=== PATIENT | female | born 1980 | race Two or more races ===

== ENCOUNTER 2024-03-14 08:22 | Inpatient (IN) | payer OTHER, MEDICAID, SELFPAY ==
--- NOTE | 2024-03-14 | XR_ITS ---
Examination: MRI pelvis , with intravenous contrast. Exam date and time: March 14, 2024 1834 hrs. Indications: Pelvic pain more than one year, pelvic sonogram January 25, 2024 vascular mass replacing the uterus 13.5 x 10.4 x 10.8 cm Technique: Multiple axial, sagittal and coronal images of the pelvis have been obtained with the Siemens high-resolution 1.5 Trice MRI scanner. Images obtained included T2 weighted fat suppressed sagittal sections, TR 3500, TE 46, T2 weighted coronal fat suppressed images, TR 3050, TE 84, T2-weighted transverse fat suppressed images, TR 30-60, TE 63, proton density transverse images, TR 4720, TE 46, and T1 weighted coronal images, TR 560, TE 13. Axial, sagittal and coronal images are obtained post intravenous injection 13 cc gadolinium. Findings: Anteverted uterus 17 x 12 x 13 cm The fundus is replaced by an enhancing tumor mass 12 x 9.6 x 12.3 cm Right ovary 2.9 x 2.2 cm with small follicular cysts Left ovary 2.8 x 2.2 cm with small follicular cyst No common iliac and external iliac or common femoral lymphadenopathy No presacral mass Moderate degenerative disc disease L5-S1 Impression: Enhancing mass replacing the fundus of uterus, 12 x 9.6 x 12.3 cm, differential would include uterine fibroid degeneration, malignant mass of the endometrium
[2024-03-14 08:34] VITALS: BP 137/86; PULSE 88; RESP 16; TEMP 36.6; O2SAT 99; BMI 30.2
--- NOTE | 2024-03-14 08:36 | PD.EDADULT ---
ED General RME/HPI General Chief complaint: General Adult/Misc Complain Stated complaint: FIBROID PAIN, SENT BY ANAYA Time Seen by Provider: 03/14/24 08:24 Arrival date/time: 03/14/24 08:22 43-year-old female presents the emergency department complaints of pelvic pain ongoing for more than a year worsening for the last couple of weeks patient reports he spoke with Dr. Macdonald who referred her to ER for surgical intervention Limitations: no limitations Related Data Allergies Allergy/AdvReac Type Severity Reaction Status Date / Time No Known Allergies Allergy Verified 04/27/21 12:02 Review of Systems Review of Systems Systems Reviewed: All systems reviewed, normal except as documented Constitutional Constitutional: Reports system reviewed and no additional complaints, except as documented, Denies fever(s) and Denies headache(s) Eyes Eyes: Reports system reviewed and no additional complaints, except as documented and Denies blurry vision ENT Ears, Nose, Mouth, and Throat: Reports system reviewed and no additional complaints, except as documented, Denies headache(s), Denies nasal congestion and Denies nasal discharge Cardiovascular Cardiovascular: Reports system reviewed and no additional complaints, except as documented, Denies chest pain and Denies dyspnea Respiratory Respiratory: Reports system reviewed and no additional complaints, except as documented, Denies chest congestion, Denies cough and Denies dyspnea Gastrointestinal Gastrointestinal: Reports system reviewed and no additional complaints, except as documented and Denies abdominal pain Genitourinary Genitourinary: Reports system reviewed and no additional complaints, except as documented, Denies abnormal vaginal bleeding and Reports pelvic pain Integumentary/Breasts Skin/Breast: Reports system reviewed and no additional complaints, except as documented and Denies rash Neurologic Neurologic: Reports system reviewed and no additional complaints, except as documented, Reports as per HPI and Denies headache(s) Past Medical History Social History SMOKING STATUS: Never smoker ED Exam General Limitations: Present no limitations General appearance: Present alert and in no apparent distress Head Head exam: Present atraumatic, normocephalic and normal inspection Eye Eye exam: Present normal appearance, PERRL and EOMI; Absent conjunctival injection ENT ENT exam: Present normal exam, normal oropharynx and mucous membranes moist Neck Neck exam: Present normal inspection, full ROM and trachea midline Chest Chest inspection: Present normal inspection and symmetric chest wall rise Respiratory Respiratory exam: Present normal lung sounds bilaterally; Absent respiratory distress Cardiovascular Cardiovascular exam: Present regular rate, normal rhythm and normal heart sounds Abdominal Exam Abdominal exam: Present soft and normal bowel sounds; Absent distention, tenderness, guarding, rebound or rigidity Extremities Exam Extremities exam: Present normal inspection and full ROM Back Exam Back exam: Present normal inspection and full ROM Neurological Exam Neurological exam: Present alert, oriented X3 and CN II-XII intact Psychiatric Psychiatric exam: Present normal affect and normal mood Skin Skin exam: Present warm, dry, intact and normal color Course Quality Measures none Orders Category Date Time Status Admit to Inpatient Status Routine Admission 03/14/24 09:04 Active Patient Condition Routine Admission 03/14/24 09:04 Ordered Activity as Tolerated Routine Care 03/14/24 09:05 Ordered COVID-19 Screening Questionnaire NOW Care 03/14/24 08:51 Active Decision to Admit X1 Care 03/14/24 08:31 Active Intake and Output QSHIFT Care 03/14/24 09:15 Ordered MRI Screening NOW Care 03/14/24 09:09 Active Notify provider NEEDED Care 03/14/24 09:04 Active Diet Regular Diet 03/14/24 Lunch Active MR pelvis w con Stat Exams 03/14/24 Ordered CBC Stat Lab 03/14/24 08:31 Ordered Comprehensive Metabolic Panel Stat Lab 03/14/24 08:31 Ordered Magnesium Routine Lab 03/15/24 09:04 Ordered Partial Thromboplastin Time Stat Lab 03/14/24 08:31 Ordered Phosphorous Routine Lab 03/15/24 09:04 Ordered Prothrombin Time with INR Stat Lab 03/14/24 08:31 Ordered Type and Screen Stat Lab 03/14/24 09:08 Ordered Acetaminophen Tab [Tylenol Tab] Med 03/14/24 09:04 Active 650 mg PO Q6H PRN Dextrose 5%-0.45% Ns [D5-1/2Ns] 1,000 ml Med 03/14/24 09:15 Active IV 75 mls/hr Ondansetron Inj [Zofran Inj] Med 03/14/24 09:04 Active 4 mg IV Q6H PRN bisacodyL [Dulcolax Supp] Med 03/14/24 09:04 Active 10 mg AL QDAY PRN bisacodyL [Dulcolax] Med 03/14/24 09:04 Active 10 mg PO QDAY PRN Code Status Routine Oth 03/14/24 09:04 Ordered Vital Signs Vital signs: Vital Signs Temperature 97.9 F 03/14/24 08:34 Pulse Rate 88 03/14/24 08:34 Respiratory Rate 16 03/14/24 08:34 Blood Pressure 137/86 H 03/14/24 08:34 Pulse Oximetry (%) 99 03/14/24 08:34 Oxygen Delivery Method Room Air 03/14/24 08:34 O2 saturation 99% room air within normal limits [facility] Patient data External records reviewed:: [facility] previous records Clinical information provided by:: patient Social determinants that could affect healthcare access:: none Patient has the following chronic illnesses:: See history How is presenting disease/condition affected by chronic disease/condition?: caused by Evaluation data The following diagnostics were reviewed and interpreted by me:: lab results Lab and/or radiology exams considered but not ordered:: Labs obtained Interpretation Summary: Reviewed by me Medications Medications considered but not ordered:: No meds Medication administrations:: Medication Administration History Acetaminophen (Acetaminophen 325 Mg Tablet) 650 mg PO Q6H PRN PRN Reason: Fever >101.5 Stop: 04/13/24 09:03 Bisacodyl (Bisacodyl 5 Mg Tabec) 10 mg PO QDAY PRN PRN Reason: CONSTIPATION Stop: 04/13/24 09:03 Bisacodyl (Bisacodyl 10 Mg Supp) 10 mg AL QDAY PRN PRN Reason: CONSTIPATION Stop: 04/13/24 09:03 Dextrose/Sodium Chloride (D5-1/2ns) 1,000 mls @ 75 mls/hr IV .[id number] PAT Stop: 04/13/24 09:14 Ondansetron HCl (Ondansetron Inj 2 Mg/Ml Inj 2 Ml) 4 mg IV Q6H PRN PRN Reason: NAUSEA OR VOMITING Stop: 04/13/24 09:03 No meds Consultations Consultation(s) initiated? (list below): Yes Consultation #1 (Physician, Specialty, Details): Dr. Macdonald Diagnosis Differential Diagnosis ED Complaint MDM: Missed , threatened , uterine tumor, ovarian cyst Most likely diagnosis given after review of the tests above:: Uterine tumor Admission Indicated Admission indicated?: indicated Explain why admission is indicated or not indicated:: Patient requires surgical intervention Admission Request Was there a request for admission?: Yes Admission Attestation Admission request attestation: Discussed case with [] from Hospitalist service regarding admission. Discussed patients ED course, exam findings, labs, and radiology results. The Hospitalist [agrees,declines] to accept the patient for admission. Disposition Plan Disposition Plan: Admit Medical Decision Making MDM Narrative MDM Narrative: 43-year-old female presents the emergency department complaints of pelvic pain ongoing for more than a year worsening for the last couple of weeks patient reports he spoke with Dr. Macdonald who referred her to ER for surgical intervention On exam patient does not appear ill or toxic in no acute distress Patient hemodynamically stable Consultation: I spoke with Dr. Macdonald he requested that I put basic labs and he will admit the patient for surgical intervention Differential Diagnosis Differential Diagnosis: Missed , threatened , uterine tumor, ovarian cyst Medical Records Medical records reviewed: Yes I reviewed the patient's medical records. Lab Data Lab results reviewed: Yes I reviewed the patient's lab results. Discharge Plan Plan Patient Disposition: Admit Acute Care w/in Hospital Disposition Comment: Stable Problem List Clinical Impression: Uterine neoplasm Patient/Caregiver Discharge Instructions Print Language: Zambian Stand Alone Forms: Breonna Award Info., Patient Portal Info Letter PA/MACHINE FEED OPERATOR Supervising Physician PA/MACHINE FEED OPERATOR Supervising Physician: Dr. Castillo
[2024-03-14 09:25] LABS: Basophils # (Auto) 0.1 Thou/mm3 (0.0-0.2); Basophils % (Auto) 1 % (0-2.5); Eosinophils # (Auto) 0.4 Thou/mm3 (0.0-0.5); Eosinophils % (Auto) 7 % (0-10); Hematocrit 39.5 % (36.0-46.0); Hemoglobin 13.6 g/dL (12.0-16.0); Immature Granulocytes % (Auto) 0 % (0-0); Immature Granulocytes Auto 0.01 Thou/mm3 (0.00-0.00); Lymphocytes # (Auto) 1.6 Thou/mm3 (1.0-4.8); Lymphocytes % (Auto) 28 % (10-50); Mean Corpuscular HGB Conc 34.4 g/dl (31.0-37.0); Mean Corpuscular Volume 81 fL (80-100); Monocytes # (Auto) 0.5 Thou/mm3 (0.0-0.8); Monocytes % (Auto) 8 % (0-12); Neutrophils # (Auto) 3.4 Thou/mm3 (1.8-7.7); Neutrophils % (Auto) 57 % (37-80); Nucleated Red Blood Cell % 0 /100 WBC (0); Platelet Count 286 Thou/mm3 (140-440); Red Blood Count 4.85 Miln/mm3 (4.00-5.20); White Blood Count 5.9 Thou/mm3 (3.6-11.0)
[2024-03-14 09:43] LABS: Partial Thromboplastin Time 23.1 Seconds (22.0-36.0); Prothrombin Time 11.3 Seconds (9.0-12.2)
--- NOTE | 2024-03-14 09:50 | PC.NURSE ---
PATIENT C/O LOWER ABD PAIN,CRAMPS AND INTERMITTENT BLEEDING. PAIN LEVEL IS 6/10. IS SEE[address] DR JULIEN AND HAS UTERINE FIBROIDS. PLAM IS TO HAVE A HYSTERECTOMY. INFORMED BY DR JULIEN TO GO TO THE ER IF INCREASED PAIN OR SYMPTOMS.
[2024-03-14 09:54] LABS: Alanine Aminotransferase 27 U/L (10-49); Albumin, Serum 4.6 gm/dL (3.5-5.0); Albumin/Globulin Ratio 1.6 (1.2-2.2); Alkaline Phosphatase 94 U/L (46-116); Anion Gap 7 (7-16); Aspartate Amino Transferase 27 U/L (0-34); BUN/Creatinine Ratio 14 Ratio (12-20); Bilirubin,Total 0.5 mg/dL (0.3-1.2); Blood Urea Nitrogen 11 mg/dL (9-23); Calcium 8.8 mg/dL (8.3-10.6); Calcium (Corrected) 8.8 mg/dL (8.5-10.1); Chloride 107 mMol/L (98-107); Creatinine (Component) 0.8 mg/dL (0.6-1.3); Estimated Creatinine Clearance 74.5 mL/min (>60); Globulin 2.9 gm/dL (2.3-3.5); Glucose 110 mg/dL (74-106); Osmolality,Calculated 274 (275-295); Sodium 137 mMol/L (136-145); Total Protein 7.5 gm/dL (5.7-8.2); eGFR > 60 See Note
[2024-03-14 10:08] LABS: Potassium 4.1 mMol/L (3.4-5.1)
[2024-03-14] MEDS: DEXTROSE 5%-0.45% NS 1,000 ML 75 ML IV ×2 (10:30→23:15)
[2024-03-14 11:52] VITALS: BP 121/67; PULSE 81; RESP 18; TEMP 36.6; O2SAT 98
[2024-03-14 13:30] VITALS: BMI 30.2
[2024-03-14 14:11] LABS: HCG,Qualitative Serum Negative
--- NOTE | 2024-03-14 19:20 | PC.NURSE ---
Dr. Macdonald made aware that patient's MRI of the pelvis without contrast showed an enhancing mass replacing the fundus of uterus, 12 x 9.6 x 12.3 cm, differential would include uterine fibroid degeneration, malignant mass of the endometrium. Dr. Macdonald said that he plans to do surgery tomorrow and that she should be NPO at midnight.
[2024-03-14 20:00] VITALS: BP 120/74; PULSE 73; RESP 18; TEMP 36.6; O2SAT 98
[2024-03-15] VITALS: BP 105/63; PULSE 66; RESP 18; TEMP 36.6; O2SAT 97
[2024-03-15 04:00] VITALS: BP 122/82; PULSE 87; RESP 18; TEMP 36.6; O2SAT 99
--- NOTE | 2024-03-15 07:07 | PD.GYNHP ---
Documentation for date of: 03/15/24 LABORATORY SAMPLE CARRIER - HPI History of Present Illness History of present illness: Ms. ORELLANA is a 43 year old female who presents to the emergency room for intractable uterine bleeding that has been going on for the past few months. Patient has been under my evaluation at the office with details as below. HPI: The patient presents for a follow-up regarding her recent ultrasound performed on January 25, 2024, at [place]. The ultrasound findings indicate a significant increase in uterine size, now measuring approximately 17 cm, compared to her last ultrasound in May. A vascular mass measuring 13 cm by 12 cm is observed, covering the entire uterus and raising concerns for uterine cancer. The patient has been informed about the need for expedited surgical intervention to confirm the diagnosis and manage the condition. She demonstrates understanding of the urgency and remains cooperative with the plan. She also recently changed her primary care provider, with the new provider taking effect on February 02. The patient acknowledges the importance of coordinating insurance approval and scheduling for the surgery, which is tentatively planned for the following week. Ultrasound Findings (January 25, 2024): ? Uterus size increased to 17 cm since May. ? Presence of a vascular mass covering the entire uterus, measuring 13 cm by 12 cm. ? High concern for uterine cancer noted. Meds Home Medications and Allergies Home Medications ?Medication ?Instructions ?Recorded ?Confirmed ?Type No Known Home Medications 03/14/24 03/14/24 History Allergies Allergy/AdvReac Type Severity Reaction Status Date / Time No Known Allergies Allergy Verified 04/27/21 12:02 Exam - LABORATORY SAMPLE CARRIER Vital Signs Temp Pulse Resp BP Pulse Ox O2 Del Method 97.8 F 87 18 122/82 99 Room Air 03/15/24 04:00 03/15/24 04:00 03/15/24 04:00 03/15/24 04:00 03/15/24 04:00 03/15/24 04:00 Constitutional Constitutional: no acute distress Routine HEENT Exam Head: Present normocephalic and atraumatic Eye: Present EOMI and PERRL ENT: Present mucous membranes moist Routine Neck Exam Neck: Present supple and trachea midline Routine Respiratory Exam Respiratory: Present chest non-tender, lungs clear, normal breath sounds and no resp distress Routine Cardiovascular Exam Cardiovascular: Present RRR Routine Abdominal Exam Abdominal: Present soft and normoactive bowel sounds Routine Extremities Exam Extremities: Present full ROM Routine Skin Exam Skin: Present intact and dry Routine Neurological Exam Neurological: Present alert, oriented X3 and CN II-XII intact Routine Psychiatric Exam Psychiatric: Present normal affect and normal thought process LABORATORY SAMPLE CARRIER - Results Labs 03/14/24 09:15 03/14/24 09:15 Labs: Short CBC 03/14/24 Range/Units 09:15 WBC 5.9 (3.6-11.0) Thou/mm3 Hgb 13.6 (12.0-16.0) g/dL Hct 39.5 (36.0-46.0) % Plt Count 286 (140-440) Thou/mm3 BMP 03/14/24 09:15 Sodium 137 Potassium 4.1 Chloride 107 Carbon Dioxide 23.0 BUN 11 Creatinine 0.8 Glucose 110 H Calcium 8.8 Liver Function 03/14/24 Range/Units 09:15 Total Bilirubin 0.5 (0.3-1.2) mg/dL AST 27 (0-34) U/L ALT 27 (10-49) U/L Alkaline Phosphatase 94 (46-116) U/L Albumin 4.6 (3.5-5.0) gm/dL Assessment and Plan Assessment and plan (1) Uterine neoplasm: Status: Acute Assessment and plan: Admit to inpatient status for further evaluation and possible surgical exploration as needed MRI ordered Will review MRI and then decide further course of treatment Quality Measures Quality Measures none
[2024-03-15 09:41] LABS: Magnesium 1.8 mg/dL (1.6-2.6); Phosphorous 2.4 mg/dL (2.4-5.1)
--- NOTE | 2024-03-15 11:23 | PC.SS ---
Patient is alert/oriented. She resides home with family. Patient is independent with ADL's. Admitted for uterine tumor. Patient being follows by Dr. Macdonald. Patient is employed. Normally healthy. Last p.c.p. was at [facility]. Last seen a year ago. No major health problems. Patient pharmacy: [facility]. Patient alt medical decision maker: . D/c plan: home transportation: family D/c needs: none
[2024-03-15] MEDS: DEXTROSE 5%-0.45% NS 1,000 ML 75 ML IV (11:28)
[2024-03-15] MEDS: FAMOTIDINE INJ 10 MG/ML VIAL 2 ML 20 MG IVP (11:29)
[2024-03-15 12:00] VITALS: BP 119/72; PULSE 78; RESP 17; TEMP 36.3; O2SAT 99
[2024-03-15] MEDS: DEXTROSE 50%-WATER INJ 50 ML SYRINGE IV (12:51)
--- NOTE | 2024-03-15 13:08 | PC.NURSE ---
1100 PATIENT CALLED IV SITE SWOLLEN. WHEN TO CHECK PATIENT LEFT IV SITE SWOLLEN. INFORMED PATIENT NOT TO WORRY THAT HAPPENS AT TIMES. ENCOURAGE TO ELEVATE AND WARM BLANKET APPLIED
--- NOTE | 2024-03-15 19:01 | ESPR_ITS ---
Documentation for date of: 03/15/24 MODERN LANGUAGES PROFESSOR Subjective Subjective Interval history: Patient has been n.p.o. all day for procedure. OR is still running and she is getting anxious. Will feed her now, patient will be shifted to Tuesday for the add-on surgery scheduled Exam Vital Signs Temp Pulse Resp BP Pulse Ox O2 Del Method 97.3 F 78 17 119/72 99 Room Air 03/15/24 12:00 03/15/24 12:00 03/15/24 12:00 03/15/24 12:00 03/15/24 12:00 03/15/24 12:00 Urinary Catheter Management Cath placed during this visit: no MODERN LANGUAGES PROFESSOR - PN: Obj Data Labs 03/14/24 09:15 03/14/24 09:15 Labs: Laboratory Results - last 24 hr 03/14/24 03/15/24 13:26 08:25 Phosphorus 2.4 Magnesium 1.8 Blood Type A Positive Antibody Screen NEGATIVE Crossmatch See Detail Blood Bank Wristband ID Yes MODERN LANGUAGES PROFESSOR - A/P Assessment and plan (1) Uterine neoplasm: Status: Acute Postoperative Procedures: Procedures Operation Date: 03/15/24 17:30 <No data on this case meets the specified criteria> Time Spent With Patient Time: Total time spent is greater than 50% in coordination of care (as documented) at patient's floor/unit and/or counseling patient: Time with patient: less than 15 minutes
--- NOTE | 2024-03-15 19:02 | PC.NURSE ---
Dr. Macdonald arrived on unit and followed up with patient with the plan of care. Per Dr. Macdonald, patient is to resume regular diet until 4am and is to resume NPO @0400 due to procedure tomorrow.
[2024-03-15 20:00] VITALS: BP 121/78; PULSE 80; RESP 18; TEMP 36.6; O2SAT 99
[2024-03-16] VITALS (16 sets, daily range): BP systolic 104–155; BP diastolic 61–94; PULSE 66–99; RESP 12–20; TEMP 36.1–36.7; O2SAT 95–100; BMI 30.2
[2024-03-16] MEDS: DEXTROSE 5%-0.45% NS 1,000 ML 75 ML IV (04:13)
--- NOTE | 2024-03-16 15:18 | PD.GYNPROC ---
Operative Note - INTERNATIONAL RECRUITER Procedure Date of procedure: 03/16/24 Procedure Performed: Exploratory laparotomy, supracervical hysterectomy and bilateral salpingectomy Indication: Pelvic mass of possible uterine origin Anesthesia type: General Procedure description: Informed consent was obtained, and the patient was taken to the operating room. Identity was confirmed using double identifiers, and she was placed on the operating table. General anesthesia was administered, and the patient was secured and positioned in the supine position. The abdomen and perineum were prepped and draped in the usual sterile fashion. A Lawson catheter was placed for continuous drainage. A time-out procedure was completed. A vertical midline skin incision was made with a scalpel and carried down through the subcutaneous tissue to the rectus fascia. The rectus fascia was incised and the fascial incision was extended superiorly and inferiorly using Palencia scissors. The fascia was grasped with Prudencio clamps and dissected off the anterior rectus muscles. The rectus muscles were in the midline, and the peritoneum was identified and entered bluntly. The peritoneal incision was extended to provide adequate access to the pelvic cavity. An Guy O-ring retractor was placed, and the bowel was packed out of the operative field. The uterus was grasped using a double-tooth tenaculum. The uterus was noted to be 24 weeks in size. The uterus was placed under traction, and dissection was started on the right side. The utero-ovarian ligament was divided using the Enseal Large Jaw. The fallopian tube was separately dissected and divided. The round ligament was then divided, and the anterior and posterior leaves of the broad ligament were . The anterior leaf was dissected to the bladder reflection to create the bladder flap, and the posterior leaf was taken down to the uterosacral ligament. Sequential bites were taken along the uterine sidewall to skeletonize and divide the uterine artery. This dissection was carried down to the level of the cervix. The same procedure was repeated on the contralateral side. At the level of the cervix, Tita clamps were placed, and the cervix was amputated. The uterus was removed and sent for pathological examination. The vaginal angles were tagged with 0 Vicryl sutures. The vaginal cuff was closed in a running fashion with 0 Vicryl, and the uterosacral ligaments were reinforced by tying the angles together. The cuff was copiously irrigated, and adequate hemostasis was confirmed. A layer of Surgicel was applied for additional hemostasis. All instruments were withdrawn, and the bowel packing and Guy retractor were removed. The peritoneum, rectus muscle as well as fascia was closed using 1 PDS in a single layer fashion. the subcutaneous layer was irrigated, and the skin was closed with ganga. The incision was thoroughly cleaned, and a sterile pressure dressing was applied. The patient was undraped, anesthesia was reversed, and she was transferred to the recovery room in stable and awake condition. 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 The patient tolerated the procedure well. No acute complications occurred. All instrument, sponge, and lap counts were correct ?2. Estimated blood loss (ml): 200 Complications: none Surgical staff Operation Date: 03/16/24 14:15 <No data on this case meets the specified criteria> Diagnosis Discharge Diagnosis (1) Uterine neoplasm: Status: Acute Problem List Completed Was Problem List Reviewed/Reconciled?: Yes
--- NOTE | 2024-03-16 15:23 | SUR.PHASEI ---
1523: Pt. arrived with oral airway in place, vitals stable, breathing unlabored, no signs of distress, dressing to ABD CDI, no active bleed noted, report received from Tristan WRIGHT And Damian REA.
[2024-03-16] MEDS: MORPHINE SULF 1 MG/ML PCA SYRINGE 30 ML 30 MG IV (15:37)
[2024-03-16] MEDS: ONDANSETRON INJ 2 MG/ML INJ 2 ML 4 MG IV (15:56)
[2024-03-16] MEDS: SODIUM CHLORIDE 0.9% 1000 ML 1,000 ML 200 ML IV ×2 (16:00→20:45)
[2024-03-16] MEDS: METOCLOPRAMIDE INJ 5 MG/ML VIAL 2 ML 10 MG IVP (16:17)
--- NOTE | 2024-03-16 16:23 | SUR.PHASEI ---
1623: Pt. AAOx4, vitals stable, breathing unlabored, complaint of slight pain, pt. connected to MARKETING PROGRAM MANAGER machine, slight nausea present, medications given, dressing to ABD CDI, no active bleed noted, maldonado catheter in place, report given to Bernie RN prior to transfer to room 365A. Family aware of transfer to room.
[2024-03-16] MEDS: ACETAMINOPHEN IVPB 1,000 MG/100 ML VIAL 250 MG IV (20:38)
[2024-03-17] VITALS (8 sets, daily range): BP systolic 102–140; BP diastolic 63–88; PULSE 72–89; RESP 16–97; TEMP 36.4–36.9; O2SAT 97–99
[2024-03-17] MEDS: SODIUM CHLORIDE 0.9% 1000 ML 1,000 ML 200 ML IV ×2 (02:20→07:27)
[2024-03-17] MEDS: ACETAMINOPHEN IVPB 1,000 MG/100 ML VIAL 250 MG IV ×3 (05:08→17:06)
[2024-03-17] MEDS: guaiFENesin/DM 10 ML UDC PO (05:08)
[2024-03-17 06:18] LABS: Basophils % (Auto) 0 % (0-2.5); Eosinophils % (Auto) 0 % (0-10); Hematocrit 33.5 % (36.0-46.0); Hemoglobin 11.4 g/dL (12.0-16.0); Immature Granulocytes % (Auto) 0 % (0-0); Immature Granulocytes Auto 0.04 Thou/mm3 (0.00-0.00); Lymphocytes # (Auto) 0.8 Thou/mm3 (1.0-4.8); Lymphocytes % (Auto) 8 % (10-50); Mean Corpuscular Volume 82 fL (80-100); Monocytes # (Auto) 0.4 Thou/mm3 (0.0-0.8); Monocytes % (Auto) 4 % (0-12); Neutrophils % (Auto) 88 % (37-80); Nucleated Red Blood Cell % 0 /100 WBC (0); Platelet Count 203 Thou/mm3 (140-440); RDW Standard Deviation 39.3 fL (36.4-46.3); Red Blood Count 4.07 Miln/mm3 (4.00-5.20); White Blood Count 10.2 Thou/mm3 (3.6-11.0)
[2024-03-17 06:44] LABS: Anion Gap 7 (7-16); BUN/Creatinine Ratio 10 Ratio (12-20); Blood Urea Nitrogen 6 mg/dL (9-23); Calcium 7.7 mg/dL (8.3-10.6); Carbon Dioxide 19.9 mMol/L (20.0-31.0); Chloride 108 mMol/L (98-107); Creatinine (Component) 0.6 mg/dL (0.6-1.3); Estimated Creatinine Clearance 99.3 mL/min (>60); Glucose 179 mg/dL (74-106); Osmolality,Calculated 271 (275-295); Potassium 3.7 mMol/L (3.4-5.1); Sodium 135 mMol/L (136-145); eGFR > 60 See Note
[2024-03-17] MEDS: DOCUSATE SOD 100 MG CAPSULE PO (07:29)
[2024-03-17] MEDS: LACTULOSE SYRUP 20 GM/30 ML UDC 10 GM PO ×2 (13:16→21:24)
[2024-03-17] MEDS: KETOROLAC INJ 30 MG/ML VIAL IVP ×2 (17:06→23:51)
[2024-03-17] MEDS: MELATONIN 3 MG TABLET PO (21:50)
[2024-03-18] VITALS (7 sets, daily range): BP systolic 121–137; BP diastolic 63–89; PULSE 81–90; RESP 16–99; TEMP 36.2–36.3; O2SAT 92–98
[2024-03-18] MEDS: KETOROLAC INJ 30 MG/ML VIAL IVP ×2 (05:32→11:26)
[2024-03-18] MEDS: LACTULOSE SYRUP 20 GM/30 ML UDC 10 GM PO (05:32)
--- NOTE | 2024-03-18 08:40 | PD.GYNPROG ---
Documentation for date of: 03/18/24 DIRECTOR NURSING SERVICE Subjective Subjective Interval history: Patient doing well this morning. Pain is adequately controlled on the current regimen. No incisional complaints, no chest pain, shortness of breath, breathing difficulties. Ambulating, tolerating p.o., passing flatus and voiding without difficulty. Exam Vital Signs Temp Pulse Resp BP Pulse Ox O2 Del Method O2 Flow Rate 97.2 F 90 18 123/63 96 Room Air 1.5 03/18/24 08:00 03/18/24 08:05 03/18/24 08:05 03/18/24 08:00 03/18/24 08:00 03/18/24 08:00 03/17/24 12:00 Constitutional Constitutional: no acute distress Routine HEENT Exam Head: Present normocephalic and atraumatic Eye: Present EOMI and PERRL ENT: Present mucous membranes moist Routine Neck Exam Neck: Present supple and trachea midline Routine Respiratory Exam Respiratory: Present chest non-tender, lungs clear, normal breath sounds and no resp distress Routine Cardiovascular Exam Cardiovascular: Present RRR Routine Abdominal Exam Abdominal: Present soft and normoactive bowel sounds Routine Extremities Exam Extremities: Present full ROM Routine Skin Exam Skin: Present intact and dry Routine Neurological Exam Neurological: Present alert, oriented X3 and CN II-XII intact Routine Psychiatric Exam Psychiatric: Present normal affect and normal thought process Urinary Catheter Management Cath placed during this visit: no DIRECTOR NURSING SERVICE - PN: Obj Data Labs 03/17/24 05:21 03/17/24 05:21 Labs: Laboratory Results - last 24 hr 03/14/24 13:26 Crossmatch See Detail DIRECTOR NURSING SERVICE - A/P Assessment and plan (1) Uterine neoplasm: Status: Acute Assessment and plan: POD#2 1. Continue routine post operative care 2. Transition to PO meds. 3. Encourage to ambulate 4. Anticipate discharge home today. 5. Home care instructions reviewed Postoperative Procedures: Procedures Operation Date: 03/16/24 14:15 Actual Procedure Side Surgeon p Exploratory laparotomy, supracervical hysterectomy and bilateral salpingectomy Chase Macdonald MD Time Spent With Patient Time: Total time spent is greater than 50% in coordination of care (as documented) at patient's floor/unit and/or counseling patient: Time with patient: less than 15 minutes
--- NOTE | 2024-03-18 08:47 | PD.GYNPROG ---
Documentation for date of: 03/18/24 [employer] Subjective Subjective Interval history: Patient doing well this morning. Pain is adequately controlled on the current regimen. No incisional complaints, no chest pain, shortness of breath, breathing difficulties. Ambulating, tolerating p.o., Adequate UOP Exam Vital Signs Temp Pulse Resp BP Pulse Ox O2 Del Method O2 Flow Rate 97.2 F 90 18 123/63 96 Room Air 1.5 03/18/24 08:00 03/18/24 08:05 03/18/24 08:05 03/18/24 08:00 03/18/24 08:00 03/18/24 08:00 03/17/24 12:00 Constitutional Constitutional: no acute distress Routine HEENT Exam Head: Present normocephalic and atraumatic Eye: Present EOMI and PERRL ENT: Present mucous membranes moist Routine Neck Exam Neck: Present supple and trachea midline Routine Respiratory Exam Respiratory: Present chest non-tender, lungs clear, normal breath sounds and no resp distress Routine Cardiovascular Exam Cardiovascular: Present RRR Routine Abdominal Exam Abdominal: Present soft and normoactive bowel sounds Routine Extremities Exam Extremities: Present full ROM Routine Skin Exam Skin: Present intact and dry Routine Neurological Exam Neurological: Present alert, oriented X3 and CN II-XII intact Routine Psychiatric Exam Psychiatric: Present normal affect and normal thought process Urinary Catheter Management Cath placed during this visit: no [employer] - PN: Obj Data Labs 03/17/24 05:21 03/17/24 05:21 Labs: Laboratory Results - last 24 hr 03/14/24 13:26 Crossmatch See Detail [employer] - A/P Assessment and plan (1) Uterine neoplasm: Status: Acute Assessment and plan: POD#1 1. Continue routine post operative care 2. Transition to PO meds. 3. Encourage to ambulate 4. Anticipate discharge home tomorrow 5. Home care instructions reviewed Postoperative Procedures: Procedures Operation Date: 03/16/24 14:15 Actual Procedure Side Surgeon p Exploratory laparotomy, supracervical hysterectomy and bilateral salpingectomy Chase Macdonald MD Time Spent With Patient Time: Total time spent is greater than 50% in coordination of care (as documented) at patient's floor/unit and/or counseling patient: Time with patient: less than 15 minutes
== END 2024-03-18 17:12 | disposition home or self-care (01) | DRG 743 ==
LOC: SERX 09:47 → SERHOLD 09:49 → S3NX 12:25
PROVIDERS: Nurse Practitioner Primary Care; Admitting Provider Obstetrics & Gynecology; Emergency Provider Emergency Medicine; PCP Obstetrics & Gynecology; Visit Provider Obstetrics & Gynecology
PROC: 0UT90ZL Resection of Uterus, Supracervical, Open Approach (ICD-10-PCS; CPT 49000; principal; 2024-03-16 14:00)
DX: N85.8 Other specified noninflammatory disorders of uterus (principal)
CPT/HCPCS: 36415; 72196; 80048; 80053; 83735; 84100; 84703; 85025; 85610; 85730; 86850; 86900; 86901; 86923; 99285; A4217; A4649; A9579; J0131; J0690; J1100; J1885; J2250; J2270; J2405; J2704; J2765; J3010; J3490; J7030; J7042; A9270

== ENCOUNTER 2024-06-27 16:00 | Outpatient (RCR) | payer OTHER, MEDICAID, SELFPAY ==
--- NOTE | 2024-06-19 15:14 | PT.OIERPT ---
PT OP Initial Eval Patient Information Outpatient Physical Therapy Treatment Date: 06/19/24 Visit Reasons: Muscle weakness Medical Diagnosis: R29.898 Treatment Dx #1: B LE weakness Start of Care: 06/19/24 Date of Onset: 03/16/24 Smoking Status Smoking Status: Never smoker Initial Assessment Subjective: Pt is 43 yr old female s/p hysterectomy and reports stiffness, weakness and heaviness in LE's since then. She is moving slow, bending is limited. She works at office and sits a lot. PMH: allergies Imaging: none Pt goal: to get more strength and learn HEP Objective: B LE strength: Quads: 4-/5 HS: 4-/5 SLR: 35 deg with shaking Gait: slower than normal Stairs: less push off with stance foot. Assessment: Pt presents with B LE weakness s/p hysterectomy. Pt may benefit from skilled therapy to meet goals and has fair rehab potential. Short Term and [employer] Goals 1. ind with HEP 2. Improved B LE strength to at least 4/5 3. Improved SLR to 45 deg without shaking 4. Ascend/descend 1 flight of stairs with reciprocol pattern Treatment Plan ? 1. Manual therapy ? 2. Therex ? 3. Modalities as indicated, moist heat, ice, estim Frequency and Duration: 1-2x a week for 8 Rx sessions Certification Dates: 06/19/24 to 09/19/24 Procedure Charges OP PT Eval Mod Complex 30 minutes: Yes
--- NOTE | 2024-06-27 16:32 | PT.ODAYNRPT ---
PT Outpatient Daily Note OP Daily Note Outpatient Physical Therapy Treatment Date: 06/27/24 Visit Reasons: Muscle weakness Subjective: Same as evaluation Objective: See F/S for therex Assessment: Difficulty with abdominal activation isometrically. Improved with reps Plan: Continue per POC Length of Time (minutes) of Treatment: 30 Minutes Procedure Charges Therapeutic Exercise 30 minutes: Yes
== END 2024-07-02 23:59 | disposition home or self-care (01) ==
LOC: CPTX 16:00
PROVIDERS: PCP Obstetrics & Gynecology; Referring Provider Obstetrics & Gynecology; Visit Provider Obstetrics & Gynecology
DX: R53.1 Weakness (principal); R29.898 Other symptoms and signs involving the musculoskeletal system
CPT/HCPCS: 97110; 97162

== ENCOUNTER 2024-07-23 16:00 | Outpatient (RCR) | payer OTHER, MEDICAID, SELFPAY ==
--- NOTE | 2024-07-04 17:35 | PT.ODAYNRPT ---
PT Outpatient Daily Note OP Daily Note Outpatient Physical Therapy Treatment Date: 07/04/24 Visit Reasons: Muscle weakness Subjective: Cameron JULIANNA mm soreness, she's been walking more on her breaks for exercise Objective: See F/S for therex Assessment: Difficulty with abdominal activation isometrically. Improved with reps Plan: Continue per POC Length of Time (minutes) of Treatment: 30 Minutes Procedure Charges Therapeutic Exercise 30 minutes: Yes
--- NOTE | 2024-07-12 16:39 | PT.ODAYNRPT ---
PT Outpatient Daily Note OP Daily Note Outpatient Physical Therapy Treatment Date: 07/12/24 Visit Reasons: Muscle weakness Subjective: No new concerns or complaints. Objective: Please see flow sheet for ther ex list. Assessment: Progression of intervention completed with muscle fatigue. Plan: Assess response to treatment. Length of Time (minutes) of Treatment: 30 Minutes Procedure Charges Therapeutic Exercise 30 minutes: Yes
--- NOTE | 2024-07-23 17:27 | PT.ODAYNRPT ---
PT Outpatient Daily Note OP Daily Note Outpatient Physical Therapy Treatment Date: 07/23/24 Visit Reasons: Muscle weakness Subjective: Improved LE strength since starting therapy. She's been walking more on her breaks for exercise Objective: See F/S for therex Assessment: Pt can squat to 40% depth x15 with good LE strength Plan: Continue per POC Length of Time (minutes) of Treatment: 30 Minutes Procedure Charges Therapeutic Exercise 30 minutes: Yes
== END 2024-08-01 23:59 | disposition home or self-care (01) ==
LOC: CPTX 16:00
PROVIDERS: PCP Obstetrics & Gynecology; Referring Provider Obstetrics & Gynecology; Visit Provider Obstetrics & Gynecology
DX: R53.1 Weakness (principal); R29.898 Other symptoms and signs involving the musculoskeletal system; M25.60 Stiffness of unspecified joint, not elsewhere classified; Z90.710 Acquired absence of both cervix and uterus
CPT/HCPCS: 97110

== ENCOUNTER 2024-08-21 16:30 | Outpatient (RCR) | payer OTHER, MEDICAID, SELFPAY ==
--- NOTE | 2024-08-07 18:15 | PT.ODAYNRPT ---
PT Outpatient Daily Note OP Daily Note Outpatient Physical Therapy Treatment Date: 08/07/24 Visit Reasons: Muscle weakness Subjective: Improved LE strength since starting therapy. She's been walking more on her breaks for exercise Objective: See F/S for therex Assessment: Pt can squat to 50% depth x15 with good LE strength Plan: Continue per POC Length of Time (minutes) of Treatment: 30 Minutes Procedure Charges Therapeutic Exercise 30 minutes: Yes
--- NOTE | 2024-08-14 17:12 | PT.ODAYNRPT ---
PT Outpatient Daily Note OP Daily Note Outpatient Physical Therapy Treatment Date: 08/14/24 Visit Reasons: Muscle weakness Subjective: Improved LE strength since starting therapy. She's been walking more on her breaks for exercise Objective: See F/S for therex Assessment: Pt can squat to 50% depth x20 with good LE strength Plan: Continue per POC Length of Time (minutes) of Treatment: 30 Minutes Procedure Charges Therapeutic Exercise 30 minutes: Yes
--- NOTE | 2024-08-21 17:24 | PT.ODAYNRPT ---
PT Outpatient Daily Note OP Daily Note Outpatient Physical Therapy Treatment Date: 08/21/24 Visit Reasons: Muscle weakness Subjective: Improved LE strength since starting therapy. She's been walking more on her breaks for exercise. She says she's tired after therapy visits. Objective: See F/S for therex Assessment: Pt can squat to 50% depth x20 with good LE strength Plan: Continue per POC Length of Time (minutes) of Treatment: 30 Minutes Procedure Charges Therapeutic Exercise 30 minutes: Yes
== END 2024-09-01 23:59 | disposition home or self-care (01) ==
LOC: CPTX 16:30
PROVIDERS: PCP Obstetrics & Gynecology; Referring Provider Obstetrics & Gynecology; Visit Provider Obstetrics & Gynecology
DX: R53.1 Weakness (principal); R29.898 Other symptoms and signs involving the musculoskeletal system; Z90.710 Acquired absence of both cervix and uterus
CPT/HCPCS: 97110

== ENCOUNTER 2024-09-03 16:29 | Outpatient (RCR) | payer OTHER, MEDICAID, SELFPAY ==
--- NOTE | 2024-09-03 18:40 | PT.ODS1RPT ---
PT OP Progress/Discharge Note Date of Service: 09/03/24 Progress Note/DC Note Progress Note/Discharge Note: Progress Note Patient Information Visit Reasons: Muscle weakness Service Continue Service or Discharge: Continue Service Status Subjective: Pt reports improved strength of LE's since starting therapy and ambulating longer. Wants to continue therapy Objective: B LE SLR: 45 deg with mild shaking Strength: Quads: 4-/5 Assessment: Pt has attended 8/8 Rx sessions on the POC and made good progress with therapy goals. She has improved SLR ROM to 45 deg but LE's shake still. She would benefit from continued therapy to meet the goal of improved B LE strength to 4/5 and to do 1 flight of stairs with reciprocol pattern. Plan: Extend POC from 8 visits to 12 visits to meet goals. We need provider's signature on this progress note to continue with therapy. Procedure Charges Therapeutic Exercise 30 minutes: Yes
== END 2024-10-01 23:59 | disposition home or self-care (01) ==
LOC: CPTX 16:29
PROVIDERS: PCP Obstetrics & Gynecology; Referring Provider Obstetrics & Gynecology; Visit Provider Obstetrics & Gynecology
DX: R53.1 Weakness (principal); R29.898 Other symptoms and signs involving the musculoskeletal system; Z90.710 Acquired absence of both cervix and uterus
CPT/HCPCS: 97110